=== PATIENT | male | born 1995 | race American Indian/Alaskan Native ===

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

== ENCOUNTER 2021-11-23 16:26 | Emergency (ER) | payer OTHER ==
[2021-11-23 17:05] VITALS: BP 130/64
== END 2021-11-23 19:30 | disposition left against medical advice (07) ==
LOC: ED 16:26
DX: R06.02 Shortness of breath (principal); Z53.21 Procedure and treatment not carried out due to patient leaving prior to being seen by health care provider